=== PATIENT | male | born 1990 ===

== ENCOUNTER 2017-10-17 13:21 | Emergency (ER) | payer OTHER ==
[2017-10-17 14:06] VITALS: TEMP 98.1
--- NOTE | 2017-10-17 15:46 | ED PDOC ---
Arrival/HPI - General Chief Complaint: Lower Extremity Problem/Injury Time Seen by Provider: 10/17/17 14:50 Historian: Patient - History of Present Illness Narrative History of Present Illness (Text): 10/17/17 15:51 27-year-old male presents today for evaluation of right great toe pain. Patient states yesterday he stubbed his toe and noticed that his toe was out of place. Patient states he pulled on the toe and put it back into place. Patient states after he reduced the dislocation he states he had no pain in the toe. Patient states he came in today for evaluation to make sure that he put the toe back in place correctly. Patient states he has full range of motion of the toe but has pain with applying pressure to the area. Patient states she's noticed significant swelling and ecchymosis to the area. Stuck Motrin this morning for pain. No other complaints Time/Duration: Other (yesterday) Past Medical History - Provider Review Nursing Documentation Reviewed: Yes - Travel History Have you recently traveled outside [place] w/in the past 3 mons?: No - Infectious Disease Hx of Infectious Diseases: None - Cardiac Hx Cardiac Disorders: No - Pulmonary Hx Respiratory Disorders: No - Psychiatric Hx Substance Use: No Family/Social History - Physician Review Nursing Documentation Reviewed: Yes Family/Social History: Unknown Family HX Smoking Status: Unknown If Ever Smoked Hx Alcohol Use: No Hx Substance Use: No Allergies/Home Meds Allergies/Adverse Reactions: Allergies Penicillins Allergy (Verified 10/17/17 14:43) ANAPHYLAXIS Review of Systems - Review of Systems Constitutional: absent: Fatigue, Fevers Respiratory: absent: SOB, Cough Cardiovascular: absent: Chest Pain, Palpitations Gastrointestinal: absent: Abdominal Pain, Nausea, Vomiting Musculoskeletal: Arthralgias. absent: Back Pain, Neck Pain Skin: absent: Rash, Pruritis Neurological: absent: Headache, Dizziness Psychiatric: absent: Anxiety, Depression Physical Exam Vital Signs Reviewed: Yes Vital Signs Temp Pulse Resp BP Pulse Ox 10/17/17 13:40 98.1 F 78 16 125/74 99 Temperature: Afebrile Blood Pressure: Normal Pulse: Regular Respiratory Rate: Normal Appearance: Positive for: Well-Appearing, Non-Toxic, Comfortable Pain Distress: None Mental Status: Positive for: Alert and Oriented X 3 - Systems Exam Head: Present: Atraumatic Mouth: Present: Moist Mucous Membranes Respiratory/Chest: Present: Clear to Auscultation, Good Air Exchange. No: Respiratory Distress, Accessory Muscle Use Cardiovascular: Present: Regular Rate and Rhythm, Normal S1, S2. No: Murmurs Lower Extremity: Present: NORMAL PULSES, Normal ROM, Tenderness (right great toe ; + edema and ecchymosis noted over the right great toe at the MCP and proximal phalanx. sensation and distal pulses intact. cap refill <2. ), Swelling, Neurovascularly Intact, Capillary Refill < 2 s. No: CALF TENDERNESS Neurological: Present: GCS=15 Skin: Present: Warm, Dry, Normal Color. No: Rashes Psychiatric: Present: Alert, Oriented x 3 Medical Decision Making ED Course and Treatment: 10/17/17 15:55 Patient is nontoxic well-appearing in no distress her vital signs are stable. pt with hx of dislocated toe that patient reduced himself yesterday. XRAY TOE; no fracture CLAIR TAPE TOE I discussed all results in depth with the patient and advised follow-up with the primary care physician/orthopedist within the next 2 days. I advised immediate return if symptoms worsen or persist or if new concerning symptoms develop. IMPRESSION; pain, TOE, hx of dislocation Motrin every 6 hours as needed for pain Follow up with primary care physician within the next 2 days Rest, ice, elevation Use crutches for ambulation Follow up with the orthopedist/collar baster within the next 2 days Return if symptoms worsen persist or if new symptoms develop - RAD Interpretation Radiology Orders: 10/17/17 14:50 FOOT RIGHT GREAT TOE ROUTINE [RAD] Stat - Medication Orders Current Medication Orders: Discontinued Medications Ketorolac Tromethamine (Toradol) 60 mg IM STAT STA Stop: 10/17/17 14:52 Last Admin: 10/17/17 15:38 Dose: 60 mg MAR Pain Assessment Document 10/17/17 15:38 SF (Rec: 10/17/17 15:38 SF [id number] Pain Reassessment Is this a pain reassessment? Yes Sleep Is patient sleeping during reassessment? No Presence of Pain Presence of Pain Yes IM Administration Charges Document 10/17/17 15:38 SF (Rec: 10/17/17 15:38 SF [id number] Injection Site MAR Injection Site Right Deltoid Charges for Administration # of IM Administrations 1 Disposition/Present on Arrival - Present on Arrival Any Indicators Present on Arrival: No History of DVT/PE: No History of Uncontrolled Diabetes: No Urinary Catheter: No History of Decub. Ulcer: No History Surgical Site Infection Following: None - Disposition Have Diagnosis and Disposition been Completed?: Yes Diagnosis: Toe pain, Hx of dislocation Disposition: HOME/ ROUTINE Disposition Time: 15:49 Patient Plan: Discharge Condition: GOOD Additional Instructions: Motrin every 6 hours as needed for pain Follow up with primary care physician within the next 2 days Rest, ice, elevation Use crutches for ambulation Follow up with the orthopedist/collar baster within the next 2 days Return if symptoms worsen persist or if new symptoms develop Prescriptions: Ibuprofen [Motrin] 600 mg PO Q6H PRN #20 tab PRN Reason: pain/fever reduction Referrals: Lynda Virk MD [Medical Doctor] - Follow up with primary Will Rojas MD [Staff Provider] - Follow up with primary Gustavo Negrete DPM [Staff Provider] - Follow up with primary Forms: [employer] ([place]ian), WORK NOTE
[2017-10-17 16:24] VITALS: BP 123/80; PULSE 75; RESP 17; O2SAT 100
--- NOTE | 2017-10-17 17:33 | RAD ---
PROCEDURE: Right Foot Radiographs. HISTORY: hx of dislocated toe, reduced by patient yesterday COMPARISON: None. FINDINGS: BONES: Normal. No fracture. JOINTS: Normal. SOFT TISSUES: Normal. OTHER FINDINGS: None. IMPRESSION: Normal right foot radiographs.
== END 2017-10-17 16:24 | disposition home or self-care (01) ==
LOC: ED 13:21
DX: M79.674 Pain in right toe(s) (principal); Z87.898 Personal history of other specified conditions
CPT/HCPCS: 73660; 96372; 99284; J1885